=== PATIENT | female | born 1950 | race Caucasian/White ===

== ENCOUNTER 2019-05-03 14:37 | Outpatient (CLI) | payer OTHER | END 2019-05-03 20:09 | disposition home or self-care (01) | LOC: SRD 14:37 | PROVIDERS: ATTEND Family Medicine | DX: M17.11 Unilateral primary osteoarthritis, right knee (principal) | CPT/HCPCS: 73564 ==

== ENCOUNTER 2020-01-09 13:59 | Emergency (ER) | payer OTHER ==
[~2020-01-09] VITALS: Ht 149.9 cm; Wt 59.4 kg
[2020-01-09 14:10] VITALS: BP_SYST 136
[2020-01-09 15:56] VITALS: BP_SYST 132
== END 2020-01-09 15:56 | disposition home or self-care (01) ==
LOC: SED 13:59
DX: T83.038A Leakage of other urinary catheter, initial encounter (principal); N39.0 Urinary tract infection, site not specified; I10 Essential (primary) hypertension; Z88.5 Allergy status to narcotic agent
CPT/HCPCS: 81002; 87086; 87186-TC; 99283

== ENCOUNTER 2022-12-11 23:10 | Emergency (ER) | payer OTHER, MEDICAID ==
--- NOTE | 2022-12-11 23:17 | NUR ---
WITH PATIENT FOR MSE.
[2022-12-11 23:23] VITALS: BP_SYST 152
--- NOTE | 2022-12-11 23:25 | NUR ---
Patient to ER bed 07 to gown for evaluation. Side rails up. Report given to PANTERA CHILDS.
[2022-12-11 23:48] LABS: BILIRUBIN,URINE NEGATIVE (NEGATIVE); BLOOD, URINE 3+ (NEGATIVE); COLOR,URINE YELLOW (YELLOW); GLUCOSE,URINE NEGATIVE (NEGATIVE); KETONES,URINE NEGATIVE (NEGATIVE); LEUKOCYTE ESTERASE ,URINE 2+ (NEGATIVE); NITRITE, URINE POSITIVE (NEGATIVE); PROTEIN URINE TRACE (NEGATIVE); UROBILINOGEN,URINE 0.2 (0.2-1.0)
[2022-12-11 23:52] LABS: CLARITY/URINE CLOUDY (CLEAR)
[2022-12-12 00:03] LABS: BACTERIA,URINE FEW /HPF (None Seen); WBC,URINE >100 /HPF (0-3)
[2022-12-12] MEDS ORDERED: CEPH-548 PO (00:50)
[2022-12-12] MEDS ORDERED: cephALEXin 500 MG CAPSULE PO ONE (01:00)
[2022-12-12 01:04] VITALS: BP_SYST 152
--- NOTE | 2022-12-12 01:04 | NUR ---
Patients caregiver given written and verbal discharge instructions and verbalizes understanding. ER DR. HILLIARD discussed with patient the results and treatment provided. Patient in stable condition. ID arm band removed. Rx of CEPHALEXIN given. Patient educated on pain management and to follow up with PMD. Pain Scale 0. Opportunity for questions provided and answered. Medication side effect fact sheet provided.
--- NOTE | 2022-12-12 01:15 | NUR ---
Note undone in ED - 12/12/22 at 0117 by [email or web address] Patient given written and verbal discharge instructions and verbalizes understanding. ER discussed with patient the results and treatment provided. Patient in stable condition. ID arm band removed. IV catheter removed intact and dressing applied, no active bleeding. Rx of NONE given. Patient educated on pain management and to follow up with PMD. Pain Scale . Opportunity for questions provided and answered. Medication side effect fact sheet provided.
== END 2022-12-12 01:04 | disposition home or self-care (01) ==
LOC: SED 23:10
DX: T83.518A Infection and inflammatory reaction due to other urinary catheter, initial encounter (principal); R33.9 Retention of urine, unspecified; I10 Essential (primary) hypertension; Z88.5 Allergy status to narcotic agent; Z79.899 Other long term (current) drug therapy
CPT/HCPCS: 81000; 87086; 99283

== ENCOUNTER 2022-12-28 06:33 | Emergency (ER) | payer OTHER, MEDICAID ==
[~2022-12-28] VITALS: Ht 160 cm; Wt 57.2 kg
[~2022-12-28 06:33] MED LIST: CEPH-548 PO
[2022-12-28 06:40] VITALS: BP_SYST 166
--- NOTE | 2022-12-28 07:00 | NUR ---
PATIENT PLACED IN ROOM 7, REPORT GIVEN TO GRACIE
--- NOTE | 2022-12-28 07:16 | NUR ---
ER Dr. Macdonald at bedside examining patient and replacing suprapubic catheter.
--- NOTE | 2022-12-28 07:25 | NUR ---
Report received from JEREMIAH Bazzi Addendum: 12/28/22 at 0801 by GLORIA Report received at 07
--- NOTE | 2022-12-28 07:35 | NUR ---
Patient given written and verbal discharge instructions and verbalizes understanding. ER MD Macdonald discussed with patient the results and treatment provided. Patient in stable condition. ID arm band removed. Opportunity for questions provided and answered.
--- NOTE | 2022-12-28 07:35 | NUR ---
Patient discharged with caregiver, a&ox4 and stable. Caregiver assisted patient on walker to caregiver's vehicle.
== END 2022-12-28 07:35 | disposition home or self-care (01) ==
LOC: SED 06:33
DX: Z43.5 Encounter for attention to cystostomy (principal); I10 Essential (primary) hypertension; Z88.5 Allergy status to narcotic agent; Z91.040 Latex allergy status; Z79.899 Other long term (current) drug therapy
CPT/HCPCS: 99284

== ENCOUNTER 2023-03-16 05:24 | Emergency (ER) | payer OTHER, MEDICAID ==
[~2023-03-16] VITALS: Ht 149.9 cm; Wt 49.9 kg
[2023-03-16 05:37] VITALS: BP_SYST 159; PULSE 94; RESP 16; TEMP 97.9; O2SAT 97
[2023-03-16 07:14] VITALS: BP_SYST 122; PULSE 88; RESP 16; TEMP 98.3; O2SAT 97
[2023-03-16] MEDS ORDERED: GASTROGRAFIN 120 ML ONE (07:30)
== END 2023-03-16 07:17 | disposition home or self-care (01) ==
LOC: SED 05:24
DX: Z46.6 Encounter for fitting and adjustment of urinary device (principal); I10 Essential (primary) hypertension; Z91.040 Latex allergy status; Z88.5 Allergy status to narcotic agent; Z79.899 Other long term (current) drug therapy
CPT/HCPCS: 99284; Q9963

== ENCOUNTER 2024-03-24 10:06 | Emergency (ER) | payer OTHER, MEDICAID ==
[~2024-03-24] VITALS: Ht 160 cm; Wt 58.5 kg
[2024-03-24 10:22] VITALS: BP_SYST 112; PULSE 83; RESP 18; TEMP 97.8; O2SAT 97
[2024-03-24 12:01] LABS: BASOPHILS # (AUTO) 0.1 K/uL (0.0-0.2); BASOPHILS % (AUTO) 0.7 % (0.0-2.0); EOSINOPHILS # (AUTO) 0.8 K/uL (0.0-0.4); EOSINOPHILS % (AUTO) 8.2 % (0.0-4.0); HEMATOCRIT 30.2 % (36-48); HEMOGLOBIN 9.9 g/dL (12.0-16.0); LYMPHOCYTES # (AUTO) 1.1 K/uL (1.0-5.5); LYMPHOCYTES % (AUTO) 11.8 % (20.5-51.5); MEAN CORPUSCULAR HEMOGLOBIN 30 pg (27-31); MEAN CORPUSCULAR HGB CONC 33 % (32-36); MEAN CORPUSCULAR VOLUME 91 fL (79.0-98.0); MONOCYTES # (AUTO) 0.6 K/uL (0.0-1.0); MONOCYTES % (AUTO) 6.1 % (1.7-9.3); NEUTROPHILS % (AUTO) 73.2 % (40.0-70.0); PLATELET COUNT (AUTO) 193 K/uL (130-430); RED BLOOD CELL COUNT(AUTO) 3.34 MIL/uL (4.2-6.2); RED CELL DISTRIBUTION WIDTH 15.7 % (9.0-15.0); WHITE BLOOD COUNT (AUTO) 9.5 K/uL (4.8-10.8)
[2024-03-24 12:02] LABS: BILIRUBIN,URINE NEGATIVE (NEGATIVE); BLOOD, URINE 3+ (NEGATIVE); CLARITY/URINE CLOUDY (CLEAR); COLOR,URINE BROWN (YELLOW); GLUCOSE,URINE NEGATIVE (NEGATIVE); KETONES,URINE NEGATIVE (NEGATIVE); LEUKOCYTE ESTERASE ,URINE 3+ (NEGATIVE); NITRITE, URINE NEGATIVE (NEGATIVE); PH,URINE 8.5 (5.0-8.0); PROTEIN URINE 2+ (NEGATIVE); UROBILINOGEN,URINE 0.2 (0.2-1.0)
[2024-03-24 12:11] LABS: BACTERIA,URINE MODERATE /HPF (None Seen); WBC,URINE 20-50 /HPF (0-3)
[2024-03-24 12:12] LABS: MUCUS,URINE 1+ /LPF (None Seen); RBC,URINE 50-80 /HPF (0-3); TRIPLE PHOSPHATE CRYSTAL,UR 0-10 /HPF (None Seen)
[2024-03-24 12:33] LABS: INR 0.9 (0.8-1.2); PROTHROMBIN TIME 9.8 SECS (9.5-12.5)
[2024-03-24 13:20] LABS: ANION GAP 10 (5-15); CALCIUM 9.4 mg/dL (8.4-11.0); CARBON DIOXIDE 22 mmol/L (23-29); CHLORIDE 110 mmol/L (98-107); CREATININE 1.29 mg/dL (0.55-1.30); GLUCOSE 115 mg/dL (74-106); POTASSIUM 4.1 mmol/L (3.5-5.1); SODIUM SERUM 142 mmol/L (136-145); UREA NITROGEN, BLOOD 34 mg/dL (8-21)
[2024-03-24] MEDS: cefTRIAXone 1 GM in LIDOCAINE 1%, 20 ML MDV 2.1 ML IM ONE (13:42)
[2024-03-24] MEDS ORDERED: NITR-85 PO (13:44)
[2024-03-24 13:53] VITALS: BP_SYST 127; PULSE 76; RESP 20; TEMP 97.8; O2SAT 98
== END 2024-03-24 13:50 | disposition home or self-care (01) ==
LOC: SED 10:06
DX: N39.0 Urinary tract infection, site not specified (principal); R41.0 Disorientation, unspecified; I10 Essential (primary) hypertension; Z88.5 Allergy status to narcotic agent; Z91.040 Latex allergy status; Z79.2 Long term (current) use of antibiotics
CPT/HCPCS: 99285; 74176; 80048; 81001; 85025; 85610; 85730; 87086; 36415; 96372; 83605; 82397; J0696; 81000; 81015; 87186; J2001